=== PATIENT | female | born 1975 | race Caucasian/White ===

== ENCOUNTER 2018-08-26 20:49 | Emergency (ER) | payer BC ==
[~2018-08-26] VITALS: Ht 152.4 cm; Wt 56.7 kg
--- NOTE | 2018-08-26 20:54 | NUR ---
Patient to ER bed 6 to gown for evaluation. Side rails up.
--- NOTE | 2018-08-26 20:55 | NUR ---
Pt C/O allergic reaction. Pt states she was prescribed Cipro for possible UTI, took her first dose at 1900, around 1999 she started experiencing generalized itching, hives, swelling of the lips and redness. Denies any shortness of breath, chest pain, N/V, or any other symptoms at this time. Reports taking Cipro in the past with no reaction. Will continue to monitor.
[2018-08-26 20:56] VITALS: BP_SYST 149
--- NOTE | 2018-08-26 20:57 | NUR ---
Dr. Celaya at bedside.
[2018-08-26] MEDS ORDERED: NACL 0.9% 1,000 ML IV ONE (21:01)
--- NOTE | 2018-08-26 21:10 | NUR ---
# 22 gauge angiocath placed to RT AC. Use of asceptic technique. Opsite placed over site. Blood return noted. Blood for lab drawn from site. Flushed with 10 cc of normal saline. No evidence of infiltration noted. Patient tolerated well.
[2018-08-26] MEDS ORDERED: DIPHENHYDRAMINE INJ 50 MG/ML VIAL IVP ONE (21:15)
[2018-08-26] MEDS ORDERED: methylPREDNISolone SOD SUCC/PF 62.5 MG/ML VIAL IVP ONE (21:15)
[2018-08-26] MEDS ORDERED: FAMOTIDINE PF 20 MG/2 ML VIAL IVP ONE (21:15)
--- NOTE | 2018-08-26 22:00 | NUR ---
Pt is resting in bed. Redness and itching has subsided. Will continue to monitor.
[2018-08-26 22:36] VITALS: BP_SYST 136
--- NOTE | 2018-08-26 22:36 | NUR ---
Patient given written and verbal discharge instructions and verbalizes understanding. ER MD Celaya discussed with patient the results and treatment provided. Patient in stable condition. ID arm band removed. IV catheter removed intact and dressing applied, no active bleeding. No Rx given. Patient educated on pain management and to follow up with PMD. Pain Scale 0/10 Opportunity for questions provided and answered.
== END 2018-08-26 22:36 | disposition home or self-care (01) ==
LOC: SED 20:49 → EDBD 20:49 → SED 22:36
DX: T36.8X5A Adverse effect of other systemic antibiotics, initial encounter (principal); R03.0 Elevated blood-pressure reading, without diagnosis of hypertension; Y92.89 Other specified places as the place of occurrence of the external cause
CPT/HCPCS: 96374; 96375; 99283; J1200; J2930; J3490; J7030

== ENCOUNTER 2021-02-07 16:13 | Emergency (ER) | payer OTHER, BC ==
[~2021-02-07] VITALS: Ht 152.4 cm; Wt 65.8 kg
--- NOTE | 2021-02-07 16:21 | NUR ---
Pt triaged and placed in waiting room. EKG completed in triage and given to Dr. Marte for interpretation
[2021-02-07 16:22] VITALS: BP_SYST 145
[2021-02-07] MEDS ORDERED: ASPIRIN 81 MG TAB.CHEW PO ONE (17:45)
[2021-02-07 18:10] LABS: BASOPHILS % (AUTO) 0.2 % (0.0-2.0); EOSINOPHILS % (AUTO) 0.5 % (0.0-4.0); HEMATOCRIT 37.2 % (36-48); HEMOGLOBIN 12.8 g/dL (12.0-16.0); LYMPHOCYTES # (AUTO) 0.9 K/uL (1.0-5.5); LYMPHOCYTES % (AUTO) 11.1 % (20.5-51.5); MEAN CORPUSCULAR HEMOGLOBIN 31 pg (27-31); MEAN CORPUSCULAR HGB CONC 34 % (32-36); MEAN CORPUSCULAR VOLUME 89 fL (79.0-98.0); MONOCYTES # (AUTO) 0.4 K/uL (0.0-1.0); MONOCYTES % (AUTO) 4.7 % (1.7-9.3); NEUTROPHILS # (AUTO) 6.9 K/uL (1.8-7.7); NEUTROPHILS % (AUTO) 83.5 % (40.0-70.0); PLATELET COUNT (AUTO) 171 K/uL (130-430); RED BLOOD CELL COUNT(AUTO) 4.16 MIL/uL (4.2-6.2); RED CELL DISTRIBUTION WIDTH 13.3 % (9.0-15.0); WHITE BLOOD COUNT (AUTO) 8.3 K/uL (4.8-10.8)
[2021-02-07 18:21] LABS: CALCIUM 9.4 mg/dL (8.4-11.0); CREATININE 1.03 mg/dL (0.55-1.30); POTASSIUM 3.8 mmol/L (3.5-5.1)
[2021-02-07 18:34] LABS: ALBUMIN 3.9 g/dL (3.4-4.8); TOTAL BILIRUBIN 0.2 mg/dL (0.0-1.0)
--- NOTE | 2021-02-07 19:35 | NUR ---
PT IN WAITING ROOM AWAITING ER BED. NO FURTHER COMPLAINTS
--- NOTE | 2021-02-07 20:51 | NUR ---
DR STEIN OUT TO TRIAGE ROOM, SPEAKING WITH PT AND SPOUSE
[2021-02-07] MEDS ORDERED: IBUP-1969 PO (22:33)
[2021-02-07 22:43] VITALS: BP_SYST 127
--- NOTE | 2021-02-07 22:48 | NUR ---
Patient given written and verbal discharge instructions and verbalizes understanding. ER MD discussed with patient the results and treatment provided. Patient in stable condition. ID arm band removed. Rx of IBUPROFEN given. Patient educated on pain management and to follow up with PMD. Pain Scale 0/10. Opportunity for questions provided and answered. Medication side effect fact sheet provided.
== END 2021-02-07 22:43 | disposition home or self-care (01) ==
LOC: SED 16:13
DX: R07.89 Other chest pain (principal); Z79.899 Other long term (current) drug therapy; V47.5XXA Car driver injured in collision with fixed or stationary object in traffic accident, initial encounter; Y93.89 Activity, other specified; Y92.89 Other specified places as the place of occurrence of the external cause; Y99.8 Other external cause status
CPT/HCPCS: 36415; 71045; 80053; 83880; 84484; 84702; 85025; 85379; 93005; 99285